=== PATIENT | female | born 1980 | race African-American/Black ===

== ENCOUNTER 2017-06-09 11:10 | Emergency (ER) | payer OTHER ==
[~2017-06-09] VITALS: Ht 172.7 cm; Wt 77.1 kg
[2017-06-09 11:19] VITALS: BP 140/53
== END 2017-06-09 12:47 | disposition home or self-care (01) ==
LOC: ER 11:12
DX: B35.0 Tinea barbae and tinea capitis (principal); F17.200 Nicotine dependence, unspecified, uncomplicated
CPT/HCPCS: 99283; A4606; Z7610